=== PATIENT | female | born 1960 | race Caucasian/White ===

== ENCOUNTER 2021-12-10 16:00 | Outpatient (RCR) | payer OTHER, SELFPAY | END 2022-01-30 11:35 | disposition home or self-care (01) | PROVIDERS: PCP Family Medicine; Visit Provider Orthopaedic Surgery Sports Medicine | DX: S83.411D Sprain of medial collateral ligament of right knee, subsequent encounter (principal); M17.12 Unilateral primary osteoarthritis, left knee; Z51.89 Encounter for other specified aftercare | CPT/HCPCS: 97110; 97140; 97161 ==

== ENCOUNTER 2022-02-24 14:43 | Outpatient (CLI) | payer OTHER, SELFPAY | END 2022-02-24 14:44 | disposition home or self-care (01) | LOC: INJ CL 14:44 | PROVIDERS: PCP Family Medicine; Visit Provider Family Medicine | DX: M17.12 Unilateral primary osteoarthritis, left knee (principal); M25.562 Pain in left knee | CPT/HCPCS: 64454 ==

== ENCOUNTER 2022-03-03 12:57 | Outpatient (CLI) | payer OTHER, SELFPAY | END 2022-03-03 12:58 | disposition home or self-care (01) | LOC: INJ CL 12:57 | PROVIDERS: PCP Family Medicine; Visit Provider Family Medicine | DX: G89.29 Other chronic pain (principal); M17.12 Unilateral primary osteoarthritis, left knee; M25.562 Pain in left knee | CPT/HCPCS: 64624; J2250; J3010 ==

== ENCOUNTER 2024-03-28 14:10 | Outpatient (CLI) | payer OTHER, SELFPAY | END 2024-03-28 14:11 | disposition home or self-care (01) | LOC: MRI 14:12 | PROVIDERS: PCP Family Medicine; Visit Provider Nurse Practitioner Family | DX: Z12.39 Encounter for other screening for malignant neoplasm of breast (principal); D05.02 Lobular carcinoma in situ of left breast | CPT/HCPCS: 77049; C8908; C8937; A9575 ==

== ENCOUNTER 2024-05-01 08:44 | Day surgery (SDC) | payer OTHER, SELFPAY ==
[2024-05-01] VITALS (24 sets, daily range): BP systolic 68–145; BP diastolic 35–88; PULSE 63–91; RESP 15–18; TEMP 36.2–36.9; O2SAT 93–100; BMI 23.8
[2024-05-01] MEDS: OXYCODONE (CR) 10 MG TAB.ER.12H PO (08:50)
[2024-05-01] MEDS: ACETAMINOPHEN 500 MG TABLET 1000 MG PO ×3 (08:50→23:28)
[2024-05-01] MEDS: LACTATED RINGERS 1000 ML 1,000 ML 100 ML IV (08:50)
--- NOTE | 2024-05-01 09:02 | W.PM.H&PU ---
History & Physical Update History & Physical Update H&P Reviewed and patient assessed: No changes noted
[2024-05-01] MEDS: SODIUM CHLORIDE 0.9 % (FLUSH) 10 ML SYRINGE IVF (09:19)
[2024-05-01] MEDS: MIDAZOLAM HCL 1 MG/ML inj IVP (10:15)
[2024-05-01] MEDS: fentaNYL 100 MCG/2 ML inj IVP (10:15)
[2024-05-01] MEDS: CEFAZOLIN 2 GM in 0.9 % SODIUM CHLORIDE Mini-bag 100 ML IVPB (10:40)
[2024-05-01] MEDS: TRANEXAMIC ACID 100 MG/ML INJ 1000 MG IV (10:45)
--- NOTE | 2024-05-01 10:53 | CRLHL7_ITS ---
For Patients: As a result of the Cures Act, medical imaging exams and procedure reports are released immediately into your electronic medical record. You may view this report before your referring provider. If you have questions, please contact your health care provider. Indication: Postop Technique: Two views left knee Findings/Impression: Hardware from a left total knee arthroplasty is in satisfactory position. Bone alignment is normal. No sign of acute fracture. Postop changes are within normal limits. Dictated by Cristopher Hedrick MD @ 05/01/2024 12:31:41 PM (Electronically Signed)
--- NOTE | 2024-05-01 10:56 | SUR.PREOP ---
TIME?OUT:?1015 PT/jessica olmos RN/bonny barnes MDA?VERIFICATION?OF?SURGICAL?SITE,?PROCEDURE,?AND?CONSENT OBTAINED?PRIOR?TO?INVASIVE?PROCEDURE.
--- NOTE | 2024-05-01 11:35 | P.ORPRC_ITS ---
Procedure Note Date of procedure: 05/01/24 Procedure: PREOPERATIVE DIAGNOSIS: 1. Left knee osteoarthritis, primary, severe POSTOPERATIVE DIAGNOSIS: 1. Left knee osteoarthritis, primary, severe PROCEDURE: 1. Left total knee arthroplasty SURGEON: Akira Person MD. EXPANDING MACHINE OPERATOR: DINO De La Cruz - Of note, a skilled volunteer assistant was critical for this case to aid in patient positioning, tissue retraction, limb manipulation/positioning, and closure. ANESTHESIA: Spinal anesthetic EBL: 50ml IMPLANTS: DePuy J&J uncemented TKA - Attune PS femur size 4 regular Size 3 tibia 5 poly spacer 32 mm Affixium patella TOURNIQUET: 65 minutes at 300 torr COMPLICATIONS: None evident INDICATIONS: The patient is a pleasant 63-year-old female who has experienced severe left knee pain and difficulty bearing weight. Workup included x-rays which revealed severe osteoarthrosis in the knee. Given the deformity, the dysfunction, and the pain, as well as the failure of nonoperative management, recommendation was made for surgery. FINDINGS: Full-thickness chondral loss diffusely throughout the medial and patellofemoral compartments. To lesser lateral compartment. Degenerative meniscus pathology medial greater than lateral. Moderate effusion upon entering the joint. DESCRIPTION OF PROCEDURE: Following a thorough discussion of risks, benefits, and alternatives consent was obtained and the left knee was marked. The patient was brought to the operating room and placed supine on the operating table. Induction of anesthesia was undertaken. 1 g IV Ancef and 1 g tranexamic acid was administered within 1 hr of incision preoperatively. Proper time-out was performed identifying proper patient, site, procedure. The operative extremity was prepped and draped in the appropriate sterile fashion using ChloraPrep after the patient was positioned supine with all bony prominences well padded. A longitudinal, anterior, midline skin incision was made starting approximately 3cm proximal to the superior pole of the patella and advanced distal to the tibial tubercle. A sub vastus approach was utilized . After mobilizing the patella, retropatellar fatpad was resected and the synovium in the suprapatellar pouch excised to visualize the anterior femoral cortex. Patellar prep showed initial measurement/thickness of 20 mm. It was resected back to approximately 14 mm. The patella prep was completed with drilling and a trial placed. Femoral preparation was performed via an intramedullary guide. Step drill allowed access into the femoral canal. The distal cutting guide was placed with 5? of valgus and 10 mm cut on the distal femur. Femur was sized using a anterior referencing guide in 3? of external rotation. This found have a best fit with the sizing noted above. The 4 in 1 cutting block was then placed, and the distal femur shaped accordingly. The box cut was then created and the trial implant inserted to confirm appropriate fit. We turned our attention to the proximal tibia. Extramedullary guide was utilized for cutting with the goal of being 90 degree cut from the mechanical axis of the tibia in the varus/valgus plane utilizing tibial crest as the primary alignment. Initially a 2 mm resection was performed from the medial tibial plateau. An additional 2 mm of tibial resection was needed to achieve proper balance in both flexion & extension. Ultimately, balancing was achieved in both flexion and extension in both varus and valgus. The knee was able to achieve full extension comfortably. It was sized to be a best fit with as noted above. At this stage, trial implants were removed, the tibia and femoral and patellar components were opened and inserted. The real poly spacer was opened and inserted. A 3 min Betadine soak performed. Finally, a final irrigation round with normal saline was performed. Closure performed with 0 PDS and #0 Stratafix for the quad tendon/retinaculum. 2-0 Vicryl/Stratafix for the subcutaneous and 4-0 Monocryl for subcuticular closure. Dressings were applied and the patient was awoken from anesthesia after the tourniquet deflated and transferred the PACU in stable condition. A skilled volunteer assistant was critical for this case to aid in patient positioning, tissue retraction, bone exposure, limb manipulation/positioning, patient safety, and closure. PLAN: 1. Weight bear as tolerated operative extremity. 2. 23 hr perioperative antibiotics. 3. Ice. 4. PT/OT consults for ambulation assistance/mobility education. 5. Social work consult for discharge planning. 6. DVT prophylaxis with at SCDs, and aspirin twice daily.
--- NOTE | 2024-05-01 12:05 | P.ANES_ITS ---
Anesthesia Charges Start Date/Time Anesthesia Start Date: 05/01/24 Anesthesia Start Time: 10:30 Stop Date/Time Anesthesia Stop Date: 05/01/24 Anesthesia Stop Time: 12:05 Coding CPT Codes CPT Codes: ANESTH KNEE ARTHROPLASTY - 87231 ([id number]) P2 - PATIENT W/MILD SYST DISEASE, QK - CALL CENTRE SUPERVISOR 2-4 CNCRNT ANES PROC, QX - COMMERCIAL FINANCE ANALYST SVC W/ MD MED DIRECTION
--- NOTE | 2024-05-01 12:05 | W.ANESCHARGE ---
Anesthesia Charges Start Date/Time Anesthesia Start Date: 05/01/24 Anesthesia Start Time: 10:30 Stop Date/Time Anesthesia Stop Date: 05/01/24 Anesthesia Stop Time: 12:05 Coding CPT Codes CPT Codes: ANESTH KNEE ARTHROPLASTY - 37938 ([id number]) P2 - PATIENT W/MILD SYST DISEASE, QK - LODGING HOUSE KEEPER 2-4 CNCRNT ANES PROC, QX - ORDNANCE HANDLER SVC W/ MD MED DIRECTION
[2024-05-01] MEDS: ePHEDrine sulfate 5 MG/ML inj IVP (12:12)
--- NOTE | 2024-05-01 12:22 | P.ANES_ITS ---
Anesthesia Charges Start Date/Time Anesthesia Start Date: 05/01/24 Anesthesia Start Time: 10:30 Stop Date/Time Anesthesia Stop Date: 05/01/24 Anesthesia Stop Time: 12:05 Coding CPT Codes CPT Codes: ANESTH KNEE ARTHROPLASTY - 00821 ([id number]) QK - FACILITIES ADMINISTRATOR 2-4 CNCRNT ANES PROC, QX - PANEL LAMINATOR SVC W/ MD MED DIRECTION, P2 - PATIENT W/MILD SYST DISEASE
--- NOTE | 2024-05-01 12:22 | W.ANESCHARGE ---
Anesthesia Charges Start Date/Time Anesthesia Start Date: 05/01/24 Anesthesia Start Time: 10:30 Stop Date/Time Anesthesia Stop Date: 05/01/24 Anesthesia Stop Time: 12:05 Coding CPT Codes CPT Codes: ANESTH KNEE ARTHROPLASTY - 69724 ([id number]) QK - PURIFICATION OPERATOR 2-4 CNCRNT ANES PROC, QX - GIFT MANAGER SVC W/ MD MED DIRECTION, P2 - PATIENT W/MILD SYST DISEASE
--- NOTE | 2024-05-01 12:23 | W.PM.NB ---
Nerve Block Nerve Block Time Seen by Provider: 10:19 Date Seen: 05/01/24 Type of block requested by surgeon for post-operative analgesia: geniculars Side: left Time out performed: Yes Verification of patient name: Yes Verification of date of : Yes Site marking: site marked Name of person performing procedure: Michel Continuous monitoring Was continuous monitoring of O2 sat, B/P, hall monitor, recorded every 15 minutes?: Yes Procedure Checklist: sterile prep, needles and gloves Ultrasound guided. Images saved: Yes Medications given in 5ml increments after negative aspiration: Marcaine %: 0.25 mL: 9 Needle gauge: 25 Patient tolerated procedure well: Yes Block Charges Block Charge (with Pro Fee): Genicular Nerve Block
--- NOTE | 2024-05-01 12:23 | W.PM.NB ---
Nerve Block Nerve Block Time Seen by Provider: 10:19 Date Seen: 05/01/24 Type of block requested by surgeon for post-operative analgesia: adductor canal Side: left Time out performed: Yes Verification of patient name: Yes Verification of date of : Yes Site marking: site marked Name of person performing procedure: Michel Continuous monitoring Was continuous monitoring of O2 sat, B/P, assistant director of security, recorded every 15 minutes?: Yes Procedure Checklist: sterile prep, needles and gloves Ultrasound guided. Images saved: Yes Medications given in 5ml increments after negative aspiration: Marcaine %: 0.25 mL: 15 Needle gauge: 20 Precedex (mcg): 25 Patient tolerated procedure well: Yes Block Charges Block Charge (with Pro Fee): Femoral Nerve Use of Ultrasound Machine for Block: Yes- US Guidance/pain block
[2024-05-01] MEDS: fentaNYL 100 MCG/2 ML inj 50 MCG IVP ×2 (12:25→12:35)
[2024-05-01] MEDS: OXYCODONE 5 MG TABLET PO ×4 (13:42→23:28)
[2024-05-01] MEDS: LACTATED RINGERS 1000 ML 1,000 ML 75 ML IV ×2 (13:43→21:07)
--- NOTE | 2024-05-01 14:05 | PM.IMCN1 ---
Date of Consult Consult date: 05/01/24 Requesting Physician: Orthopedics Primary Care Provider: Susie Covington MD Consult Narrative Narrative: HOSPITALIST CONSULT Left total knee arthroplasty SURGEON: Akira Person MD. ANESTHESIA: Spinal anesthetic EBL: 50ml COMPLICATIONS: None evident The hospital medicine team was asked by the orthopedic surgery team to manage the patient's depression, hyperlipidemia. There have been no perioperative complications. I have updated and reviewed the active medical problems, past medical history, past surgical history, social history, allergies and medications in our electronic EMR. This includes a cross reference to care everywhere in [facility] and with [facility] databases. PHYSICAL EXAM: CODE STATUS: FULL CODE CONSTITUTIONAL: Conversive, good historian. A/O. Knows setting and context. VITAL SIGNS: see record. HEENT: Normocephalic, atraumatic. PERRL, EOMI, conjunctivae pink, no scleral icterus. Ears and nose externally normal. Pharynx normal. NECK: No JVD. No carotid bruit, no thyromegaly, no adenopathy. CHEST: Clear to auscultation bilaterally HEART: S1 and S2 normal. ABDOMEN: Flat, soft, nontender. Normal bowel sounds. Moderately obese. EXTREMITIES: No edema. MUSCULOSKELETAL: Left knee SDI intact; no bleeding, no obvious hematoma. NEURO: Cranial nerves intact. Mentation normal. Normal affect. SKIN: No rashes, petechiae, concerning changes PSYCHIATRIC: Mentation normal. INVESTIGATIONS: EMR Reviewed; Pre-OP Reviewed DISPOSITION: DVT: Agree with Ortho team decision, aspirin 81mg BID x 1 month GI: PO intake PFSH PFSH Medical History (Updated 05/01/24 @ 14:12 by Nabila Amaro MD) Osteoarthritis of left knee ?M17.12 - Unilateral primary osteoarthritis, left knee (ICD-10) Sprain of medial collateral ligament of right knee, initial encounter ?S83.411A - Sprain of medial collateral ligament of right knee, initial encounter (ICD-10) Migraine ?G43.909 - Migraine, unspecified, not intractable, without status migrainosus (ICD-10) Depressive disorder ?F32.A - Depression, unspecified (ICD-10) Dysplastic nevi ?D23.9 - Other benign neoplasm of skin, unspecified (ICD-10) Hyperopia of both eyes with astigmatism and presbyopia ?H52.03 - Hypermetropia, bilateral (ICD-10) ?H52.203 - Unspecified astigmatism, bilateral (ICD-10) ?H52.4 - Presbyopia (ICD-10) Basal cell carcinoma ?C44.91 - Basal cell carcinoma of skin, unspecified (ICD-10) Adjustment disorder with depressed mood ?F43.21 - Adjustment disorder with depressed mood (ICD-10) Vitamin D deficiency ?E55.9 - Vitamin D deficiency, unspecified (ICD-10) Lobular carcinoma in situ ?D05.00 - Lobular carcinoma in situ of unspecified breast (ICD-10) Hyperlipidemia ?E78.5 - Hyperlipidemia, unspecified (ICD-10) Depression ?F32.A - Depression, unspecified (ICD-10) Anxiety ?F41.9 - Anxiety disorder, unspecified (ICD-10) Surgical History (Updated 05/01/24 @ 14:12 by Nabila Amaro MD) History of total left knee replacement ?Z96.652 - Presence of left artificial knee joint (ICD-10) Status post surgical manipulation of knee joint ?Z98.890 - Other specified postprocedural states (ICD-10) History of bunionectomy ?Z98.890 - Other specified postprocedural states (ICD-10) History of arthroscopy of right knee ?Z98.890 - Other specified postprocedural states (ICD-10) History of breast biopsy ?Z98.890 - Other specified postprocedural states (ICD-10) History of arthroscopy of left knee (07/08/10) ?Z98.890 - Other specified postprocedural states (ICD-10) History of total right knee replacement (07/07/16) ?Z96.651 - Presence of right artificial knee joint (ICD-10) Family History Paternal Grandfather Coronary artery disease Father Heart disease Diabetes Skin cancer Aunt Breast cancer Social History (Updated 09/18/21 @ 08:44 by Sara Marr ~ COMPUTER MECHANIC, COMPUTER MECHANIC) Smoking Status: Never smoker Do you use any of these nicotine containing products: None Second hand tobacco smoke exposure: No How often do you have a drink containing alcohol: monthly or less AUDIT-C Alcohol total score: 1 Non-prescribed substance use: denies use Caffeine: Yes Meds Home Medications and Allergies Home Medications ?Medication ?Instructions ?Recorded ?Confirmed ?Type lorazepam 0.5 mg tablet 0.5 mg PO Q6H PRN 09/18/21 05/01/24 History multivitamin 1 tab PO QDAY 09/18/21 05/01/24 History sertraline 50 mg tablet 50 mg PO DAILY 09/18/21 05/01/24 History trazodone 50 mg tablet 25 mg PO QHS PRN 04/28/24 05/01/24 History sumatriptan succinate 50 mg tablet 50 mg PO Q2H PRN 05/01/24 05/01/24 History (Imitrex) Allergies Allergy/AdvReac Type Severity Reaction Status Date / Time codeine Allergy Mild shaky and Verified 05/01/24 08:55 muscle spasm Exam Const: Vital Signs, click to edit/add: Vital Signs - 24 hr 05/01/24 09:16 05/01/24 10:15 05/01/24 12:05 Temperature 97.8 F 97.9 F Pulse Rate 78 77 70 Respiratory Rate 16 16 16 Blood Pressure 134/71 145/80 H 90/56 L Pulse Oximetry 100 96 99 Oxygen Delivery Me thod Room Air Nasal Cannula Room Air Oxygen Flow Rate 3 05/01/24 12:10 05/01/24 12:15 05/01/24 12:20 Temperature Pulse Rate 80 71 81 Respiratory Rate 17 16 16 Blood Pressure 89/63 L 104/65 99/68 Pulse Oximetry 99 98 95 Oxygen Delivery Me thod Oxygen Flow Rate 05/01/24 12:25 05/01/24 12:30 05/01/24 12:35 Temperature Pulse Rate 68 65 63 Respiratory Rate 18 18 15 Blood Pressure 113/63 108/57 L 100/58 L Pulse Oximetry 95 99 93 Oxygen Delivery Me thod Nasal Cannula Oxygen Flow Rate 2 05/01/24 12:40 05/01/24 12:45 Temperature 97.2 F L Pulse Rate 64 67 Respiratory Rate 16 18 Blood Pressure 104/61 103/58 L Pulse Oximetry 100 98 Oxygen Delivery Me thod Room Air Room Air Oxygen Flow Rate Assessment and Plan Assessment and plan (1) History of total left knee replacement: Problem comment: April 2024, Dr. Comer Status: Acute Assessment and Plan: Hospital medicine team is happy to follow the patient through to discharge. We are expecting a routine postoperative course. I have reconciled home medications and completed our part of the discharge. -informed off mild orthostatic hypotension upon arrival. not tachy. will give 500cc LR bolus and monitor. EBL 50cc (2) Depressive disorder: Status: Acute (3) Hyperlipidemia: Status: Acute (4) Migraine: Status: Acute
--- NOTE | 2024-05-01 15:27 | REH.PT ---
Pt with low BP 60/40 long sitting in bed. BP 117/60 Lying in trendelenburg. Reviewed HEP with HO provided and encouraged her to perform again this evening. Will Eval tomorrow morning.
[2024-05-01] MEDS: 0.9 % SODIUM CHLORIDE 500 ML IV (15:51)
[2024-05-01] MEDS: CEFAZOLIN 1 GM in 0.9 % SODIUM CHLORIDE Mini-bag 100 ML IVPB (16:48)
[2024-05-01 17:04] LABS: Hematocrit 40.8 % (33.0-51.0); Hemoglobin* 13.9 gm/dL (12.0-16.0); Mean Corpuscular HGB Conc 34 gm/dL (32-36); Mean Corpuscular Hemoglobin 31 pg (26-34); Mean Corpuscular Volume 91 fL (80-100); Platelet Count* 267 K/uL (140-440); Red Blood Count 4.48 m/uL (4.00-5.20)
[2024-05-01 17:14] LABS: Slide Review Reflex No
[2024-05-01 17:15] LABS: Chloride* 104 mmol/L (96-114); Potassium* 3.9 mmol/L (3.6-5.1); Sodium* 137 mmol/L (135-149)
[2024-05-01 17:18] LABS: Anion Gap 6 mEq/L (7-15); Blood Urea Nitrogen* 10 mg/dL (7-30); Calcium* 8.7 mg/dL (8.4-10.6); Carbon Dioxide* 27 mmol/L (20-32); Creatinine* 0.6 mg/dL (0.5-1.5); Est. Creatinine Clearance* 44.95; Estimated Glomerular Filt Rate 100 ml/min; Glucose* 98 mg/dL (60-115)
[2024-05-01 17:29] LABS: NT Pro B Type NatriureticPept* 223 pg/mL
[2024-05-01 17:31] LABS: Troponin I* < 0.01 ng/mL (0.01-0.04)
[2024-05-01] MEDS: ONDANSETRON 2 MG/ML inj 4 MG IVP (17:48)
[2024-05-01] MEDS: SUMAtriptan succinate 50 MG TABLET PO (18:07)
--- NOTE | 2024-05-01 20:27 | PC.NURSE ---
Pt arrived to the unit @ 1300. Pt AxOx4, pleasant, and cooperative with cares. at bedside. Pt had low BPs with HOB elevation, a total of 1000c bolus given per MD orders. EKG complete, lab draws complete per MD orders r/t BPs. LR running @ 75 ml currently. Pt unable to void per self. Preventive Maintenance Engineer completed bladder scan, straight cathed for a total of 1000cc UOP. Pt drinking adequate amount of PO fluids. Pt tolerating reg diet well. Migraine developed during the evening, comforting measures provided, Neuros WNL, PRN medication given. See MAR for pain intervention. Pt reported L knee pain that was relieved with PRN medication, warming blankets, exercises, reposition, and active ice. Seen by therapies in the evening. Pt was given PRN Zofran for nausea. Pt reported relief of nausea and improved headache. Active ice. Call light within reach. CMS intact of the BLE, dressing CDI.
[2024-05-01] MEDS: ASPIRIN 81 MG TABLET EC PO (21:07)
[2024-05-01] MEDS: SENNOSIDES 1 TAB TABLET 2 TAB PO (21:07)
[2024-05-01] MEDS: LORazepam 0.5 MG TABLET PO (23:32)
[2024-05-02] MEDS: CEFAZOLIN 1 GM in 0.9 % SODIUM CHLORIDE Mini-bag 100 ML IVPB ×2 (01:15→09:44)
[2024-05-02] MEDS: OXYCODONE 5 MG TABLET PO ×4 (02:53→11:12)
[2024-05-02 03:00] VITALS: BP 96/50; PULSE 91; RESP 16; TEMP 36.8; O2SAT 99
[2024-05-02] MEDS: ACETAMINOPHEN 500 MG TABLET 1000 MG PO ×2 (05:24→11:12)
--- NOTE | 2024-05-02 06:36 | PC.NURSE ---
End of shift report [id number]: Alert and oriented x 4. Pain to left knee well managed with current regimen. CMS to RLE intact, non pitting edema noted to left knee. Dressing clean, dry and intact. Patient tolerating ambulation with walker. Denies any dizziness or lightheadedness this shift. IV fluids continued throughout the night to continue administering volume to patient due to hypotensive episodes upon admission to floor. Denies any nausea or vomiting, tolerating foods and fluids. Ice pack applied to left knee throughout the shift.
[2024-05-02 06:54] LABS: Basophils Absolute Auto 0.02 K/uL (0.00-0.30); Basophils Percent Auto 0.4 % (0.0-3.0); Eosinophils Absolute Auto 0.04 K/uL (0.00-0.50); Eosinophils Percent Auto 0.8 % (0.0-7.0); Hematocrit 35.7 % (33.0-51.0); Lymphocytes Absolute Auto 1.26 K/uL (0.90-2.90); Mean Corpuscular HGB Conc 34 gm/dL (32-36); Mean Corpuscular Hemoglobin 31 pg (26-34); Mean Corpuscular Volume 92 fL (80-100); Monocytes Percent Auto 12.5 % (0.0-11.0); Neutrophils Percent Auto 61.3 % (42.0-72.0); Platelet Count* 271 K/uL (140-440); White Blood Count* 5.05 K/uL (4.50-11.00)
[2024-05-02 06:56] LABS: Slide Review Reflex No
[2024-05-02 07:20] LABS: Potassium* 3.9 mmol/L (3.6-5.1); Sodium* 137 mmol/L (135-149)
[2024-05-02 07:23] LABS: Blood Urea Nitrogen* 10 mg/dL (7-30); Creatinine* 0.7 mg/dL (0.5-1.5); Est. Creatinine Clearance* 44.95; Estimated Glomerular Filt Rate 97 ml/min
[2024-05-02 07:45] VITALS: PULSE 112; RESP 16; O2SAT 100
[2024-05-02 07:57] VITALS: BP 112/63; PULSE 112; RESP 16; TEMP 36.6; O2SAT 100
[2024-05-02] MEDS: SENNOSIDES 1 TAB TABLET 2 TAB PO (09:44)
[2024-05-02] MEDS: ASPIRIN 81 MG TABLET EC PO (09:44)
--- NOTE | 2024-05-02 13:31 | PC.NURSE ---
pt stable and agreeable, a&ox4 all questions answered, pt assisted in wheel chair out of facility and was able to safely enter their car with loved one. discharge instructions were gone over and sent with patient and their .
--- NOTE | 2024-05-02 15:46 | PM.ORPN ---
Subjective Subjective Time Seen by Provider: 08:00 Date Seen: 05/02/24 Principal diagnosis: Status postop day 1 left total knee arthroplasty Interval history: Patient reports doing well. No acute events over night. Pain managed with scheduled and PRN medications, ice. DVT prophylaxis: 81 mg aspirin by mouth twice daily, SCDs, walking. Denies fevers, chills, aches, N/V, CP, SOB/LECHUGA, or lightheadedness. Reports that she will be using a CPM machine due to history of excessive scar tissue development. Unsure how to use or when to use the machine. Furthermore, she has a polar ice machine with compression. She is unsure how the compression component works. Ortho Exam Narrative Exam Narrative: -Patient appears comfortable; no apparent acute distress -Alert and oriented times 3 -Operative knee moderately swollen; soft tissues supple; no ecchymosis; no erythematous streaking Warmth appropriate -Surgical dressing clean, dry, intact; no drainage -Bilateral calfs soft; no significant swelling, edema, tenderness, erythema, discoloration, warmth, or palpable cords -2+ DP/PT pulses, intact dermatomes and myotomes distally (5/5 strength) Const Vital Signs, click to edit/add: Vital Signs - 24 hr 05/01/24 16:00 05/01/24 17:00 05/01/24 18:00 Temperature 97.4 F L 97.5 F L 97.5 F L Pulse Rate 77 73 74 Pulse Rate [Pulse Oximeter] Respiratory Rate 16 16 18 Blood Pressure 115/69 117/67 145/77 H Blood Pressure [Left Arm] Pulse Oximetry 96 100 97 Oxygen Delivery Method Room Air Room Air Room Air 05/01/24 19:00 05/01/24 19:00 05/01/24 23:00 Temperature 97.6 F 97.8 F Pulse Rate 71 91 Pulse Rate [Pulse Oximeter] Respiratory Rate 18 18 Blood Pressure 112/88 121/64 Blood Pressure [Left Arm] Pulse Oximetry 100 99 98 Oxygen Delivery Method Room Air Room Air 05/01/24 23:00 05/01/24 23:00 05/01/24 23:00 Temperature 98.4 F Pulse Rate 84 Pulse Rate [Pulse Oximeter] 84 Respiratory Rate 18 18 Blood Pressure 116/58 L Blood Pressure [Left Arm] Pulse Oximetry 98 98 Oxygen Delivery Method Room Air Room Air 05/02/24 03:00 05/02/24 07:45 05/02/24 07:45 Temperature 98.2 F Pulse Rate Pulse Rate [Pulse Oximeter] 91 112 H Respiratory Rate 16 16 16 Blood Pressure Blood Pressure [Left Arm] 96/50 L Pulse Oximetry 99 100 Oxygen Delivery Method Room Air Room Air 05/02/24 07:57 Temperature 97.9 F Pulse Rate Pulse Rate [Pulse Oximeter] 112 H Respiratory Rate 16 Blood Pressure Blood Pressure [Left Arm] 112/63 Pulse Oximetry 100 Oxygen Delivery Method Room Air Assessment and Plan Assessment and plan (1) History of total left knee replacement: Problem details: April 2024, Dr. Comer Status: Acute (2) Depressive disorder: Status: Acute (3) Hyperlipidemia: Status: Acute (4) Migraine: Status: Acute Plan - Complete 23 hour perioperative antibiotics. - PT/OT consult for education and assistance. - Social work consult for discharge planning - Prescribed analgesics as needed - DVT prophylaxis: 81 mg aspirin by mouth twice daily, walking, and SCDs - Anticipation is for discharge to home with family/friends today 05/02/2024 if the patient remains medically stable, pain is controlled, and they are safe with mobilization. - Our office will call her regarding the parameters for both the CPM and ice/compression machine
== END 2024-05-02 11:49 | disposition home or self-care (01) ==
LOC: OR 08:47 → MEDSURG 08:47
PROVIDERS: Internal Medicine; PCP Family Medicine; Visit Provider Orthopaedic Surgery Sports Medicine
PROC: (CPT 27447; principal; 2024-05-01 10:45)
DX: M17.12 Unilateral primary osteoarthritis, left knee (principal); G89.18 Other acute postprocedural pain; I95.1 Orthostatic hypotension; G43.909 Migraine, unspecified, not intractable, without status migrainosus; E55.9 Vitamin D deficiency, unspecified; F41.9 Anxiety disorder, unspecified; R94.31 Abnormal electrocardiogram [ECG] [EKG]; Z79.82 Long term (current) use of aspirin; F32.A Depression, unspecified; E78.5 Hyperlipidemia, unspecified
CPT/HCPCS: 27447; 01402; 36415; 51702; 51798; 64447; 64454; 73560; 76942; 80048; 82565; 83735; 83880; 84132; 84295; 84443; 84484; 84520; 85025; 85027; 93005; 97110; 97116; 97161; 97165; 97535; A9270; C1776; J0665; J0690; J2250; J2405; J2704; J3010; J7030; J7120

== ENCOUNTER 2024-07-18 08:30 | Outpatient (RCR) | payer OTHER, SELFPAY | END 2024-10-13 17:27 | disposition home or self-care (01) | PROVIDERS: PCP Family Medicine; Visit Provider Orthopaedic Surgery Sports Medicine | DX: M17.12 Unilateral primary osteoarthritis, left knee (principal); Z96.652 Presence of left artificial knee joint; M25.562 Pain in left knee; Z51.89 Encounter for other specified aftercare | CPT/HCPCS: 97110; 97112; 97116; 97140; 97161; 97530 ==